=== PATIENT | male | born 1960 | race Caucasian/White ===

== ENCOUNTER 2025-04-12 07:39 | Day surgery (SDC) | payer SELFPAY ==
[~2025-04-12] VITALS: Ht 170.2 cm; Wt 107.0 kg
[~2025-04-12 07:39] MED LIST: ATEN25TA PO; GLIM2TAB29 PO; LISI20TA33 PO; METF10004 PO; NAPR220C14 PO; SIMV20TA22 PO; TAMS1CAP17 PO
[2025-04-12] MEDS ORDERED: ONDANSETRON 4MG 2ML VIAL As Ordered ONE (08:26)
[2025-04-12] MEDS ORDERED: ACETAMINOPHEN 1000MG/100ML IV BAG As Ordered ONE (08:26)
[2025-04-12] MEDS ORDERED: dexAMETHasone 4 MG/ML 1 ML VIAL As Ordered ONE (08:26)
[2025-04-12] MEDS ORDERED: LIDOCAINE 2% 100 MG/5 ML SDV (FOR ANES.) As Ordered ONE (08:26)
[2025-04-12] MEDS ORDERED: MIDAZOLAM INJ 2 MG/2 ML VIAL As Ordered ONE (08:27)
[2025-04-12] MEDS ORDERED: dexmedeTOMIDine (4 MCG/ML) 200 MCG/50 ML BTL As Ordered ONE (08:27)
[2025-04-12] MEDS ORDERED: LR 1,000 ML IV SCH (08:30)
[2025-04-12] MEDS ORDERED: LIDOCAINE 5% OINT 30 GM TUBE As Ordered ONE (09:05)
[2025-04-12] MEDS ORDERED: SEVOFLURANE INHAL SOLN 250 ML BTL As Ordered ONE (09:11)
[2025-04-12] MEDS: POVIDONE-IODINE 5% OPHTH PREP SOL 30ML As Ordered ONE (10:10)
[2025-04-12] MEDS: ceFAZolin SOD 2 GM IV ONCE IV ONE (10:10)
[2025-04-12] MEDS ORDERED: PHENYLephrine 500MCG 5ML (100MCG/ML) SYRINGE As Ordered ONE (10:20)
[2025-04-12] MEDS ORDERED: LACRILUBE (AKWA TEARS) OPHTH OINT 3.5 GM As Ordered ONE (10:22)
[2025-04-12] MEDS: LIDOCAINE W/EPINEPHrine 1% 20 ML VIAL As Ordered ONE (11:34)
[2025-04-12] MEDS ORDERED: HYDROMORPHONE HCL 0.5 MG/0.5 ML SYRINGE IV PRN (11:40)
[2025-04-12] MEDS ORDERED: ONDANSETRON 4MG 2ML VIAL IV PRN (11:40)
[2025-04-12 12:50] VITALS: BP 111/60; TEMP 97.2; O2SAT 95
== END 2025-04-12 13:05 | disposition home or self-care (01) ==
LOC: M SDC 07:39
PROVIDERS: ATTEND Plastic Surgery Surgery of the Hand
DX: C44.229 Squamous cell carcinoma of skin of left ear and external auricular canal (principal); I10 Essential (primary) hypertension; E11.9 Type 2 diabetes mellitus without complications; E78.5 Hyperlipidemia, unspecified; G47.33 Obstructive sleep apnea (adult) (pediatric); Z79.84 Long term (current) use of oral hypoglycemic drugs; Z79.899 Other long term (current) drug therapy; N40.0 Benign prostatic hyperplasia without lower urinary tract symptoms; Z88.0 Allergy status to penicillin; Z91.013 Allergy to seafood
CPT/HCPCS: 14040; 88305; J0131; J0688; J2250; J2371; J2405; J2765; J3010